=== PATIENT | female | born 1985 | race Caucasian/White ===

== ENCOUNTER 2018-01-03 08:35 | Outpatient (CLI) | payer OTHER ==
[2018-01-03] MEDS ORDERED: Iopamidol 370 76% 100 ML VIAL ONE (09:00)
--- NOTE | 2018-01-03 11:19 | CT ---
CT OF THE CHEST WITH CONTRAST: Comparison: None. History: Mass or knot in the sternum. Technique: Multiple contiguous axial images were obtained in a CT of the chest with contrast. Sagitta l and coronal reformats were performed. FINDINGS: A marker is placed at the area of palpable abnormality along the xiphoid process. No mass is seen in the xiphoid process. A circular thin calcification extends off the inferior aspect of the xiphoid pro cess and extends slightly more anteriorly than the xiphoid process and may be the area of palpable ab normality. The marker is placed slightly above this prominence of the circular thin calcification. No suspicious mass is seen. No pulmonary nodules are seen. No pneumothorax or pleural effusion are present. The heart is normal in size. No hilar or mediastinal lymphadenopathy are seen. The visualized subdiaphragmatic structures and bones are unremarkable. IMPRESSION: The area of abnormality may represent a thin circular calcification extending off the xiphoid process . POS: [facility]
== END 2018-01-03 08:36 | disposition home or self-care (01) ==
LOC: SCSCT 08:35
PROVIDERS: ATTEND Family Medicine
DX: M89.9 Disorder of bone, unspecified (principal)
CPT/HCPCS: 71260

== ENCOUNTER 2018-11-02 10:34 | Outpatient (CLI) | payer OTHER ==
[2018-11-02 11:10] LABS: Hemoglobin 12.2 g/dL (12.0-16.0); Mean Corpuscular HGB CONC 33.3 g/dL (32.0-36.0); Mean Corpuscular Hemoglobin 28.6 pg (27.0-31.0); Mean Corpuscular Volume 85.7 fL (78.0-98.0); Mean Platelet Volume 8.6 fL (7.4-10.4); Platelet Count 252 thou/uL (130-400); RBC Distribution Width 12.8 % (11.5-14.5); Red Blood Cell (RBC) Count 4.26 mill/uL (4.20-5.40); White Blood Cell (WBC) Count 5.2 thou/uL (4.8-10.8)
[2018-11-02 11:17] LABS: BHCG - Serum Negative (NEGATIVE); Pregs Control Background? CLEAR/WHITE (CLR/WHITE); Pregs Control Bar Appear? YES (CONTROL BAR)
== END 2018-11-02 10:35 | disposition home or self-care (01) ==
LOC: LABBT 10:34
PROVIDERS: ATTEND Obstetrics & Gynecology
DX: Z01.812 Encounter for preprocedural laboratory examination (principal); N94.6 Dysmenorrhea, unspecified; N92.1 Excessive and frequent menstruation with irregular cycle
CPT/HCPCS: 84703; 85027; 86850; 86900; 86901

== ENCOUNTER 2018-11-08 08:29 | Inpatient (IN) | payer OTHER ==
[2018-11-02 11:07] VITALS: BMI 26.5
--- NOTE | 2018-11-02 11:51 | HP ---
REASON FOR ADMISSION: Menorrhagia, severe dysmenorrhea, and chronic pelvic pain. SCHEDULED PROCEDURE: Total laparoscopic hysterectomy and bilateral salpingectomy. HISTORY OF PRESENT ILLNESS: Ms. Parks is a 33-year-old, G2, P2, who has a long history of menorrhagia and dysmenorrhea. She is intolerant of oral contraceptives and IUDs. She desires definitive surgical management. She has had a negative Pap smear in the past 2 years. She has no history of dysplasia. OBSTRETICAL/GYNECOLOGICAL HISTORY: x2. PAST MEDICAL HISTORY: None. PAST SURGICAL HISTORY: C-sections and breast augmentation. ALLERGIES: NONE. MEDICATIONS: daily. SOCIAL HISTORY: Denies tobacco, alcohol, or IV drug abuse. FAMILY HISTORY: Noncontributory. REVIEW OF SYSTEMS: Noncontributory. PHYSICAL EXAMINATION: GENERAL: White female, in no acute distress. VITAL SIGNS: Height 5 feet and 3 inches, weight 144, and BMI 25. Blood pressure 124/82, pulse 85, and respirations 18. HEENT: Within normal limits. LUNGS: Clear to auscultation bilaterally. HEART: Regular rate and rhythm. BREASTS: Soft masses bilaterally, status post augmentation. ABDOMEN: Soft, nontender. No rebound or guarding. GENITALIA: Vulva discharge. Cervix, parous. Uterus anteverted, 6 to 8 week size, boggy and tender. No adnexal masses. EXTREMITIES: Without clubbing, cyanosis, or edema. IMPRESSION: Persistent dysmenorrhea, menorrhagia, with chronic pelvic pain, unresponsive to oral contraceptives or IUD. PLAN: Discussed with the patient options, we will proceed with TLH, bilateral salpingectomy. The patient understands the risks and benefits of procedure including bleeding, infection, prolapse, and persistence of pain. Job ID: [id number]
--- NOTE | 2018-11-06 22:53 | HP ---
REASON FOR ADMISSION: Dysmenorrhea, menorrhagia, dyspareunia. SCHEDULED PROCEDURE: Total laparoscopic hysterectomy, bilateral salpingectomy. HISTORY OF PRESENT ILLNESS: Ms. Parks is a 33-year-old, G2, P2, status post x2, who has a long history of dysmenorrhea and menorrhagia. She reports it has not been managed with OCPs and does not desire IUD. She desires definitive surgical management. She bleeds for more than 7 days a month and requires more than eight pads per day. BLACK PULLER HISTORY: Noted. No history of dysplasia. No history of STD. x2. PAST MEDICAL HISTORY: None. PAST SURGICAL HISTORY: and breast augmentation. ALLERGIES: NONE. MEDICATIONS: . SOCIAL HISTORY: Denies tobacco, alcohol, or IV drug use. FAMILY HISTORY: Noncontributory. REVIEW OF SYSTEMS: Noncontributory. PHYSICAL EXAMINATION: GENERAL: White female. VITAL SIGNS: Height 5 feet 3 inches. Blood pressure 124/82, pulse 84, respirations 18, 145 pounds. HEENT: Within normal limits. LUNGS: Clear to auscultation bilaterally. HEART: Regular rate and rhythm. BREASTS: Bilaterally intact implants. ABDOMEN: Soft, nontender. No rebound or guarding. GENITALIA: Vulvar lesions. Vagina; discharge. Cervix; parous. Uterus anteverted, eight week size, boggy, consistent with adenomyosis. Adnexa, no masses bilaterally. EXTREMITIES: No clubbing, cyanosis, or edema. IMPRESSION: Dysmenorrhea, menorrhagia, and dyspareunia unresponsive to medical management. PLAN: TLH, bilateral salpingectomy. The patient understands risks, benefits of procedure. We will administer appropriate antibiotic and DVT prophylaxis. Job ID: [id number]
[2018-11-08] MEDS ORDERED: CEFAZOLIN 2 GM/50 ML BAG ONE (09:12)
[2018-11-08] MEDS ORDERED: Gabapentin 300 MG CAP ONE (09:12)
[2018-11-08] MEDS ORDERED: CeleCOXIB 100 MG CAP ONE (09:12)
[2018-11-08] MEDS ORDERED: Famotidine/PF 20 mg/2ml Vial ONE ×2 (09:13→12:53)
[2018-11-08] MEDS ORDERED: Bupivacaine HCl 0.5%/Epinephrine 1:200,000/PF 30 ml Vial ONE (09:46)
[2018-11-08] MEDS ORDERED: Midazolam HCl 2 mg/2 ml Vial ONE ×3 (12:29→12:58)
[2018-11-08] MEDS ORDERED: Fentanyl 250 MCG/5 ML VIAL ONE (12:53)
[2018-11-08] MEDS ORDERED: Fentanyl 100 MCG/2 ML VIAL ONE ×2 (12:58→15:05)
[2018-11-08] MEDS ORDERED: HYDROmorphone 2 MG/ML VIAL SLOW IVP PRN (13:52)
[2018-11-08] MEDS ORDERED: Promethazine HCl 25 MG/ML VIAL SLOW IVP PRN (13:52)
[2018-11-08] MEDS ORDERED: Promethazine HCl 25 MG/ML VIAL IM PRN ×2 (13:52→15:22)
[2018-11-08] MEDS ORDERED: Meperidine HCl/PF 25 MG/ML VIAL SLOW IVP PRN (13:52)
[2018-11-08] MEDS ORDERED: Ondansetron PF 4 MG/2 ML Vial IVP PRN (15:22)
[2018-11-08] MEDS ORDERED: Morphine 2 MG/ML SYRINGE SLOW IVP PRN (15:22)
[2018-11-08] MEDS ORDERED: Simethicone Chewable 80 MG TAB PO PRN (15:22)
[2018-11-08] MEDS ORDERED: diphenhydrAMINE 25 MG CAP PO PRN (15:22)
[2018-11-08] MEDS ORDERED: Zolpidem Tartrate 5 MG TAB PO PRN (15:22)
[2018-11-08] MEDS: Morphine 2 MG/ML SYRINGE SLOW IVP PRN (16:09)
[2018-11-08] MEDS: Sodium Chloride 0.9% 1,000 ML IV SCH ×2 (16:10→23:55)
[2018-11-08] MEDS: Acetaminophen 1,000 MG in Premix Bag 1 BAG IVPB SCH ×2 (17:42→23:50)
[2018-11-08] MEDS ORDERED: Ketorolac Tromethamine 30 MG/ML VIAL IVP SCH (18:00)
[2018-11-08] MEDS: Ketorolac Tromethamine 30 MG/ML VIAL IVP SCH (20:03)
--- NOTE | 2018-11-08 21:15 | OP ---
DATE OF PROCEDURE: 11/08/2018 PREOPERATIVE DIAGNOSES: Dysmenorrhea and chronic pelvic pain. POSTOPERATIVE DIAGNOSES: Dysmenorrhea and chronic pelvic pain. PROCEDURE PERFORMED: Total laparoscopic hysterectomy and bilateral salpingectomy. COPING MACHINE OPERATOR: Shania Pruett D.O. ANESTHESIA: General endotracheal. MEDICATIONS: 2 g Ancef. PREINCISION: DVT prophylaxis with SCDs. DRAINS: Dave to gravity. OPERATIVE FINDINGS: 1. Approximately eight-week size uterus consistent with adenomyosis. 2. Mild amount of scarring at the level of the vesicouterine peritoneal fold as well as the left adnexa, previous . 3. Clear urine. COUNTS: Correct. DISPOSITION: Recovery room in good condition. DESCRIPTION OF PROCEDURE: After obtaining appropriate informed consent, the patient was taken to the operating room, where general endotracheal anesthesia was achieved without difficulty. She was prepped and draped in dorsal lithotomy in Tristan stirrups. Sidearm speculum was placed in vagina, cervix was identified, grasped with single-tooth tenaculum at 12 o'clock, sounded to 8.5 cm. Lavinia manipulator with a 4 cm vaginal product development chemist, an 8 cm obturator was placed without difficulty. The speculum and tenaculum were removed. An pulp operator changed his gloves, turned attention to abdominal portion of procedure. Dave catheter had been placed at the time of the vaginal exam. A 5 mL of Marcaine was injected at the base of umbilicus. A 12 mm skin incision was made. Veress needle was placed inside the abdominal cavity via saline drop test. Insufflation was carried out with carbon dioxide for a maximum pressure of 15, approximately 3.5 L. Once this was done, Veress needle was removed and a 12 mm non-cutting trocar was introduced. Confirmation of entry into the peritoneal cavity without trauma to the underlying viscera was noted under direct visualization. The patient was placed in steep Trendelenburg position. The right and left lateral trocars lateral to the epigastric vessels as well as an 11 mm preschool assistant trocar in the right upper quadrant were placed without difficulty. Da Marlee robot was docked with monopolar scissors in the right hand and bipolar forceps in the left. Left adnexa was mobilized, omental adhesions were taken down, and mesosalpinx was coagulated, and transected up to the level of the insertion of the fallopian tube into the uterus. It was excised and removed through the accessory port. Utero-ovarian ligament was coagulated and transected through the broad, the round, and down to the level of internal cervical os. The vesicouterine peritoneum was sharply dissected off the lower uterine segment, cervix, and upper vagina. Skeletonization of the uterine vessels was carried on the left and they were coagulated. Attention was turned to the right side, where the identical procedure was carried out removing the fallopian tube, coagulating to the utero-ovarian, broad, round, and down to the level of internal cervical os, and taking off the vesicouterine peritoneum. The bladder was well dissected off the lower uterine segment, cervix, and upper vagina. Skeletonization of the uterine vessels was carried out posteriorly. The peritoneum was incised between the uterosacral ligaments, down to the level of the cul-de-sac, and Darwin, entered into the vagina. Once this was all performed, the vagina was entered using the monopolar scissors extended from 6 to 3 and 6 to 9 and from 12 to 3 and 12 to 9. The specimen was amputated and pulled out of the vagina to maintain pneumoperitoneum. Suction irrigation was carried out of the cuff and no significant areas of bleeding were noted. The bladder was backfilled to confirm its position. It was noted to be well away from the vaginal cuff. The cuff was closed using running continuous 0-PDS suture lock suture going from right to left and then back to right. Suction and irrigation were carried out. Good hemostasis was noted. All counts were correct. Tisseel was applied across all surgical areas and the Da Marlee instruments removed. The Da Marlee robot was undocked, and the abdomen was desufflated of carbon dioxide, and all trocars were removed. The umbilical trocar fascia was re-approximated using 0-Vicryl suture. Skin was re-approximated x4 using 4-0 Monocryl and Dermabond. The vagina was inspected, noted to be dry. The patient awakened, extubated, and taken to the recovery room in good condition. Job ID: [id number]
[2018-11-09] MEDS: Ketorolac Tromethamine 30 MG/ML VIAL IVP SCH ×2 (02:16→08:38)
[2018-11-09] MEDS: Morphine 2 MG/ML SYRINGE SLOW IVP PRN (04:05)
[2018-11-09] MEDS: Acetaminophen 1,000 MG in Premix Bag 1 BAG IVPB SCH (05:53)
[2018-11-09 06:46] LABS: Hemoglobin 10.5 g/dL (12.0-16.0); Mean Corpuscular HGB CONC 32.9 g/dL (32.0-36.0); Mean Corpuscular Hemoglobin 28.1 pg (27.0-31.0); Mean Corpuscular Volume 85.4 fL (78.0-98.0); Mean Platelet Volume 8.7 fL (7.4-10.4); Platelet Count 227 thou/uL (130-400); RBC Distribution Width 12.6 % (11.5-14.5); Red Blood Cell (RBC) Count 3.73 mill/uL (4.20-5.40); White Blood Cell (WBC) Count 12.5 thou/uL (4.8-10.8)
[2018-11-09 11:23] VITALS: BP 120/66; TEMP 97.6
[2018-11-09] MEDS: Sodium Chloride 0.9% 1,000 ML IV SCH (11:46)
--- NOTE | 2018-11-09 12:32 | DIS ---
DATE OF ADMISSION: 11/08/2018 DATE OF DISCHARGE: 11/09/2018 PRINCIPAL AND HOSPITAL PROCEDURE: Total laparoscopic hysterectomy with bilateral salpingectomy. SUMMARY OF HOSPITAL COURSE: The patient underwent the aforementioned surgical procedure at approximately 1300 hours on 11/08. She had a minimal blood loss of approximately 50 mL. Postoperatively, Dave was discontinued approximately 3 hours postoperatively and the patient is voiding with ease. She is ambulating with ease. She is tolerating p.o. Postoperative hematocrit is 31.9%. PHYSICAL EXAMINATION: VITAL SIGNS: Temperature 98.4, pulse 69, respirations 20, and blood pressure 106/55. LUNGS: Clear to auscultation bilaterally. HEART: Regular rate and rhythm. ABDOMEN: Soft and nontender. No rebound or guarding. Incisions are intact. Perineum is dry. EXTREMITIES: No clubbing, cyanosis, or edema. No evidence of DVT. IMPRESSION: The patient is doing very well as expected status post Total laparoscopic hysterectomy with bilateral salpingectomy with da Marlee robot assist. PLAN: We will discharge the patient home. The patient already has Horner prescription, which she has picked up preoperatively. She will take [id number] Aleve or ibuprofen q.8 hours for 1 week on a [id number] basis and then use Horner as a p.r.n. medicine. She will follow up with me at [facility] [place] in 6 weeks. Job ID: [id number]
== END 2018-11-09 12:36 | disposition home or self-care (01) | DRG 743 ==
LOC: SDC 08:29 → EDSTATUS 09:30 → 3SE 15:35 → OBSVTOIN 15:35
PROVIDERS: ADMIT Obstetrics & Gynecology; ATTEND Obstetrics & Gynecology
PROC: 0UT94ZZ Resection of Uterus, Percutaneous Endoscopic Approach (ICD-10-PCS; principal; 2018-11-08)
PROC: 0UT74ZZ Resection of Bilateral Fallopian Tubes, Percutaneous Endoscopic Approach (ICD-10-PCS; 2018-11-08)
PROC: 8E0W4CZ Robotic Assisted Procedure of Trunk Region, Percutaneous Endoscopic Approach (ICD-10-PCS; 2018-11-08)
DX: N80.0 Endometriosis of uterus (principal); N92.1 Excessive and frequent menstruation with irregular cycle; N94.6 Dysmenorrhea, unspecified; G89.29 Other chronic pain; R10.2 Pelvic and perineal pain; N94.10 Unspecified dyspareunia; Z98.890 Other specified postprocedural states
CPT/HCPCS: 36415; 85027; 88307; 96374; J0131; J0670; J1885; J2250; J2270; J3010; S0028